=== PATIENT | male | born 1965 | race Caucasian/White ===

== ENCOUNTER → 2016-08-26 | Outpatient (CLI) | payer MEDICARE, OTHER ==
[~2016-08-26] MED LIST: FISH1000 PO; MULT-142; MULT1TAB84 PO; VITA-136; VITA100064 PO; VITA400C2 PO; VITACAP7 PO
[2016-08-26 13:05] LABS: HEMATOCRIT 42.9 % (39.0-51.0); MEAN CELL VOLUME 95.3 FL (80.0-100.0); MEAN CORPUSCULAR HEMOGLOBIN 31.7 PG (27.0-34.0); MEAN CORPUSCULAR HGB CONC 33.3 % (32.0-36.0); PLATELET COUNT 221 TH/MM3 (150-450); RED CELL DISTRIBUTION WIDTH 14.1 % (11.6-17.2); REVIEW FLAG FINAL; WHITE BLOOD COUNT 3.7 TH/MM3 (4.0-11.0)
[2016-08-26 13:41] LABS: ALT (GPT) 28 U/L (12-78); ANION GAP 5 MEQ/L (5-15); AST (GOT) 37 U/L (15-37); BICARBONATE 30.9 MEQ/L (21.0-32.0); BLOOD UREA NITROGEN 22 MG/DL (7-18); CHLORIDE 105 MEQ/L (98-107); GLOMERULAR FILTRATION RATE 52 ML/MIN (>89); GLUCOSE,FASTING 78 MG/DL (74-99); SODIUM (NA) 141 MEQ/L (136-145)
[2016-08-26 13:50] LABS: ALKALINE PHOSPHATASE 56 U/L (45-117); FREE T3 2.79 PG/ML (2.18-3.98); FREE T4 0.74 NG/DL (0.76-1.46); HDL CHOLESTEROL 57.7 MG/DL (40.0-60.0); LDL CHOLESTEROL 142 MG/DL (0-99); TOTAL BILIRUBIN ADULT 0.8 MG/DL (0.2-1.0)
== END ==
LOC: PLAB 07:27
PROVIDERS: ATTEND Family Medicine
DX: Q90.9 Down syndrome, unspecified (principal); E06.3 Autoimmune thyroiditis; E78.5 Hyperlipidemia, unspecified; E55.9 Vitamin D deficiency, unspecified
CPT/HCPCS: 36415; 80053; 80061; 82306; 84439; 84443; 84481; 85027

== ENCOUNTER → 2016-11-10 | Outpatient (CLI) | payer MEDICARE, OTHER ==
[2016-11-10 12:54] LABS: ANION GAP 3 MEQ/L (5-15); AST (GOT) 45 U/L (15-37); BICARBONATE 33.9 MEQ/L (21.0-32.0); BLOOD UREA NITROGEN 22 MG/DL (7-18); CHLORIDE 103 MEQ/L (98-107); GLOMERULAR FILTRATION RATE 47 ML/MIN (>89); GLUCOSE,FASTING 80 MG/DL (74-99); POTASSIUM 4.2 MEQ/L (3.5-5.1); SODIUM (NA) 140 MEQ/L (136-145)
[2016-11-10 13:05] LABS: ALKALINE PHOSPHATASE 68 U/L (45-117); ALT (GPT) 32 U/L (12-78); FREE T4 0.78 NG/DL (0.76-1.46)
== END ==
LOC: PLAB 08:35
PROVIDERS: ATTEND Family Medicine
DX: E03.9 Hypothyroidism, unspecified (principal); N18.3 Chronic kidney disease, stage 3 (moderate)
CPT/HCPCS: 36415; 80053; 84439; 84443

== ENCOUNTER → 2017-02-20 | Outpatient (CLI) | payer MEDICARE, OTHER ==
[~2017-02-20] MED LIST changes: -MULT1TAB84 PO; -VITA400C2 PO
[2017-02-20 10:23] LABS: ANION GAP 8 MEQ/L (5-15); AST (GOT) 38 U/L (15-37); BICARBONATE 28.3 MEQ/L (21.0-32.0); BLOOD UREA NITROGEN 20 MG/DL (7-18); CHLORIDE 102 MEQ/L (98-107); GLOMERULAR FILTRATION RATE 54 ML/MIN (>89); GLUCOSE,FASTING 84 MG/DL (74-99); POTASSIUM 3.7 MEQ/L (3.5-5.1); SODIUM (NA) 138 MEQ/L (136-145)
[2017-02-20 10:33] LABS: ALKALINE PHOSPHATASE 70 U/L (45-117); ALT (GPT) 30 U/L (12-78); FREE T4 0.73 NG/DL (0.76-1.46); HDL CHOLESTEROL 58.8 MG/DL (40.0-60.0); LDL CHOLESTEROL 154 MG/DL (0-99); TOTAL BILIRUBIN ADULT 0.8 MG/DL (0.2-1.0)
[2017-02-20 10:42] LABS: TOTAL PROTEIN SPE 7.8 GM/DL (6.0-7.6)
[2017-02-21 10:41] LABS: ALBUMIN SPE 4.21 GM/DL (3.50-5.00); ALPHA 1 GLOBULIN 0.21 GM/DL (0.11-0.29); ALPHA 2 GLOBULIN 0.85 GM/DL (0.22-1.00); BETA GLOBULINS (SPE) 0.74 GM/DL (0.53-1.03)
== END ==
LOC: PLAB 07:15
PROVIDERS: ATTEND Family Medicine
DX: E03.9 Hypothyroidism, unspecified (principal); N18.1 Chronic kidney disease, stage 1
CPT/HCPCS: 36415; 80053; 80061; 84165; 84439; 84443

== ENCOUNTER 2017-04-25 12:30 | Emergency (ER) | payer MEDICARE, OTHER ==
[~2017-04-25] VITALS: Ht 152.4 cm; Wt 56.4 kg
[~2017-04-25 12:30] MED LIST changes: -VITA-136; +VITA-142
[2017-04-25 12:32] VITALS: BP 118/58; PULSE 69; RESP 16; TEMP 98.3; O2SAT 100
[2017-04-25] MEDS ORDERED: AMOX875T PO (12:57)
--- NOTE | 2017-04-25 12:58 | PD ---
HPI Chief Complaint: Fall Time Seen by Provider: 12:47 Travel History International Travel<30 days: No Contact w/Intl Traveler<30days: No Traveled to known affect area: No History of Present Illness HPI 51-year-old male presents to the emergency department with his mother and father for evaluation after a trip and fall that occurred just prior to arrival. Patient is has Down syndrome is unable to contribute to history of physical. The parents state that his fall was witnessed. He tripped over a shoe falling forward and hitting his face. They stated he did not lose consciousness. He has not had any vomiting. He has been acting normally. He is able to freely move his neck without difficulty. He does not take any anticoagulants. His parents brought him in due to a laceration to the mouth. They're unsure of his tetanus immunization is up-to-date. No exacerbating or alleviating factors. Severity is moderate. PFSH Past Medical History Medical History: Denies Significant Hx Cardiovascular Problems: Yes Seizures: Yes Past Surgical History Surgical History: No Previous Surgery Cardiac Surgery: Yes (CARDIAC SX) Social History Alcohol Use: No Tobacco Use: No Substance Use: No Allergies-Medications (Allergen,Severity, Reaction): Coded Allergies: diatrizoate meglumine (Unverified Adverse Reaction, Unknown, Swelling, ) gadobenic acid (Unverified Adverse Reaction, Unknown, Swelling, 04/25/17) gadodiamide (Unverified Adverse Reaction, Unknown, Swelling, 04/25/17) gadoteridol (Unverified Adverse Reaction, Unknown, Swelling, 04/25/17) iodixanol (Unverified Adverse Reaction, Unknown, Swelling, 04/25/17) iohexol (Unverified Adverse Reaction, Unknown, Swelling, 04/25/17) Reported Meds & Prescriptions Reported Meds & Active Scripts Active Amoxicillin 875 Mg Tab 875 Mg PO BID 7 Days Reported Multi Vitamin and Mineral (Multiple Vitamins W/ Minerals) 1 Tab Tab Vitamin E (Vitamin E Acetate) 400 Unit Capsule B Complex (B-Complex Vitamins) 1 Cap 1 Cap PO DAILY Fish Oil (Tracy-3 Fatty Acids) 1,000 Mg Cap 1,000 Mg PO BID Vitamin D3 (Cholecalciferol) 1,000 Unit Tab 1,000 Units PO BID Review of Systems Except as stated in HPI: all other systems reviewed are Neg Physical Exam Narrative GENERAL: Well-nourished, well-developed male patient, ambulatory. Afebrile. SKIN: Focused skin assessment warm/dry. Patient has a 0.5 cm laceration just inside the upper lip without bleeding. HEAD: Normocephalic. EYES: No scleral icterus. No injection or drainage. PERRLA. EOM intact. ENT: Mucosa pink and moist. No erythema or exudates. No uvular edema. No uvular , palatal, or tonsillar deviation. Airway patent. Nasal turbinates appear normal without nasal blood, purulent drainage or septal hematoma. Bilateral tympanic membranes are clear without erythema or perforation. NECK: Supple, trachea midline. No JVD or lymphadenopathy. CARDIOVASCULAR: Regular rate and rhythm without murmurs, gallops, or rubs. RESPIRATORY: Breath sounds equal bilaterally. No accessory muscle use. Lungs sounds are clear to auscultation. GASTROINTESTINAL: Abdomen soft, non-tender, nondistended. MUSCULOSKELETAL: No cyanosis, or edema. BACK: Nontender without obvious deformity. No CVA tenderness. Data Data Last Documented VS Vital Signs Date Time Temp Pulse Resp B/P (MAP) Pulse Ox O2 Delivery O2 Flow Rate FiO2 04/25/17 12:32 98.3 69 16 118/58 (78) 100 Orders Orders Tetanus/Diphtheria Tox Adult (Tetanus/Di (04/25/17 13:00) Ed Discharge Order (04/25/17 12:58) MDM Medical Decision Making Medical Screen Exam Complete: Yes Emergency Medical Condition: Yes Medical Record Reviewed: Yes Differential Diagnosis Laceration versus abrasion versus closed head injury Narrative Course 51-year-old male presents to the emergency department after a trip and fall that occurred just prior to arrival. He has been acting normally without vomiting or LOC. He is not on anticoagulants. Cardiac [place] [facility] had rules, imaging is not indicated at this time. I discussed with the patient's parents who verbalizes agreement with this. I instructed them on symptoms and they should immediately return for. The laceration is very minor on exam. I do feel this laceration will heal up without issue without intervention. I discussed with the parents who agree with this. They would like to avoid sutures if possible. Patient will be discharged with a prescription for amoxicillin to prevent infection. His parents are educated on wound care. He verbalizes agreement and understanding. The patient was discharged in stable condition with instructions, including return instructions and follow up instructions. Diagnosis Primary Impression: Laceration of mouth Qualified Codes: S01.512A - Laceration without foreign body of oral cavity, initial encounter Referrals: Primary Care Physician call for appointment Patient Instructions: General Instructions, Laceration Without Closure (ED) Additional Instructions: Clean laceration after eating with water. Take antibiotic as directed to prevent infection. Rinse your mouth out with water after eating. Follow-up with your primary care physician. Return to the emergency department for any acute worsening of symptoms. Med/Other Pt SpecificInfo: Prescription(s) given Scripts Amoxicillin (Amoxicillin) 875 Mg Tab 875 MG PO BID for Infection for 7 Days, #14 TAB 0 Refills Prov: Maria Del Carmen Nieto 04/25/17 Disposition: 01 DISCHARGE HOME Condition: Stable Maria Del Carmen Nieto Apr 25, 2017 12:58
[2017-04-25] MEDS ORDERED: TETANUS/DIPHTHERIA TOXOID ADULT 0.5 ML VIAL IM ONE (13:00)
== END 2017-04-25 13:08 | disposition home or self-care (01) ==
LOC: PHEFT 12:30
DX: S01.511A Laceration without foreign body of lip, initial encounter (principal); W01.0XXA Fall on same level from slipping, tripping and stumbling without subsequent striking against object, initial encounter; Q90.9 Down syndrome, unspecified; Z79.899 Other long term (current) drug therapy
CPT/HCPCS: 90471; 90714

== ENCOUNTER → 2017-05-19 | Outpatient (CLI) | payer MEDICARE, OTHER ==
[~2017-05-19] MED LIST changes: +AMOX875T PO
[2017-05-19 10:44] LABS: AUTOMATED NEUTROPHIL # 1.5 TH/MM3 (1.8-7.7); BASOPHIL # 0.1 TH/MM3 (0-0.2); BASOPHIL % 2.2 % (0.0-2.0); EOSINOPHIL % 1.5 % (0.0-4.0); HEMO FLAGS DIFF FINAL; LYMPH % 31.1 % (9.0-44.0); LYMPHOCYTE # 0.9 TH/MM3 (1.0-4.8); MEAN CELL VOLUME 96.7 FL (80.0-100.0); MEAN CORPUSCULAR HEMOGLOBIN 33.2 PG (27.0-34.0); MEAN CORPUSCULAR HGB CONC 34.3 % (32.0-36.0); MONO % 10.4 % (0.0-8.0); NEUT % 54.8 % (16.0-70.0); PLATELET COUNT 236 TH/MM3 (150-450); RED BLOOD COUNT 4.44 MIL/MM3 (4.50-5.90); RED CELL DISTRIBUTION WIDTH 13.7 % (11.6-17.2); WHITE BLOOD COUNT 2.8 TH/MM3 (4.0-11.0)
[2017-05-19 11:13] LABS: ALT (GPT) 30 U/L (12-78); ANION GAP 5 MEQ/L (5-15); AST (GOT) 37 U/L (15-37); BICARBONATE 31.2 MEQ/L (21.0-32.0); BLOOD UREA NITROGEN 21 MG/DL (7-18); CHLORIDE 103 MEQ/L (98-107); GLOMERULAR FILTRATION RATE 51 ML/MIN (>89); GLUCOSE,FASTING 89 MG/DL (74-99); POTASSIUM 4.2 MEQ/L (3.5-5.1); SODIUM (NA) 139 MEQ/L (136-145)
[2017-05-19 11:21] LABS: ALKALINE PHOSPHATASE 67 U/L (45-117); HDL CHOLESTEROL 58.4 MG/DL (40.0-60.0); LDL CHOLESTEROL 152 MG/DL (0-99); TOTAL BILIRUBIN ADULT 0.8 MG/DL (0.2-1.0)
== END ==
LOC: PLAB 09:16
PROVIDERS: ATTEND Internal Medicine Nephrology
DX: E78.5 Hyperlipidemia, unspecified (principal); N18.3 Chronic kidney disease, stage 3 (moderate); E03.9 Hypothyroidism, unspecified
CPT/HCPCS: 36415; 80053; 80061; 83970; 84100; 84439; 84443; 85025